=== PATIENT | male | born 1995 | race Hispanic/Latino ===

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

== ENCOUNTER 2018-05-27 01:17 | Emergency (ER) | payer OTHER ==
[2018-05-27] MEDS ORDERED: THERMAZENE 50 GRAM TP ONE (07:44)
[2018-05-27] MEDS ORDERED: ANCEF IM ONE (07:44)
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
[2018-05-27] MEDS ORDERED: WATER FOR INJ (PF) ONE (07:59)
[2018-05-27 08:28] VITALS: BP 110/72
[2018-05-27] MEDS ORDERED: WATER FOR INJ (PF) IM ONE (11:00)
== END 2018-05-27 08:26 | disposition home or self-care (01) ==
LOC: ED 01:17
DX: T24.002A Burn of unspecified degree of unspecified site of left lower limb, except ankle and foot, initial encounter (principal); J45.909 Unspecified asthma, uncomplicated; X08.8XXA Exposure to other specified smoke, fire and flames, initial encounter; Y93.89 Activity, other specified; Y92.89 Other specified places as the place of occurrence of the external cause; Y99.8 Other external cause status
CPT/HCPCS: 10060; 96372; 99282; J0690